=== PATIENT | male | born 1990 | race Two or more races ===

== ENCOUNTER 2017-03-09 18:05 | Emergency (ER) | payer OTHER ==
[~2017-03-09] VITALS: Ht 177.8 cm; Wt 68.9 kg
[2017-03-09 18:13] VITALS: BP 118/63
[2017-03-09] MEDS ORDERED: Bacitracin Oint UD TOPIC ONE (18:30)
[2017-03-09] MEDS ORDERED: Tetanus/Diptheria/Pertussis Vaccine 0.5ml Syr IM ONE (18:30)
[2017-03-09] MEDS ORDERED: IBUPROFEN600 MG ORAL (18:50)
[2017-03-09] MEDS ORDERED: CEPHALEXIN500 MG ORAL (18:50)
[2017-03-09 19:00] VITALS: BP 118/63
--- NOTE | 2017-03-09 20:49 | Emergency Room Report ---
History of Present Illness General Chief Complaint: Laceration Source: Patient Present Illness HPI The patient is a 26-year-old male presenting for injury to the left finger. He states that he was at work 4 days ago and a lemon jeff cut his left fifth digit. He noticed pain and bleeding at that time but did not seek medical attention. he is unsure of last tetanus shot. He denies any pain at this time. He is now presenting for possible infection. He denies any other symptoms including N, V, rash, wound discharge, numbness/tingling Allergies: Coded Allergies: No Known Allergies (Unverified , 03/09/17) Patient History Past Medical History: see triage record Pertinent Family History: none Reviewed Nursing Documentation: PMH: Agreed, PSxH: Agreed Nursing Documentation-PMH Past Medical History: No Stated History Review of Systems All Other Systems: negative except mentioned in HPI Physical Exam Vital Signs Date Time Temp Pulse Resp B/P (MAP) Pulse Ox O2 Delivery O2 Flow Rate FiO2 03/09/17 18:13 98.2 58 19 118/63 99 03/09/17 18:13 Room Air Sp02 EP Interpretation: reviewed, normal General Appearance: no apparent distress, alert, GCS 15, non-toxic Head: normocephalic, atraumatic Neck: full range of motion, supple/symm/no masses Respiratory: no respiratory distress, no accessory muscle use, speaking full sentences Musculoskeletal: back normal, gait/station normal, normal range of motion, tender - distal L 5th finger Neurologic: alert, oriented x3, responsive, motor strength/tone normal, sensory intact, speech normal Psychiatric: judgement/insight normal, memory normal, mood/affect normal, no suicidal/homicidal ideation Skin: laceration - 1cm linear laceration to the distal L 5th digit Medical Decision Making PA Attestation Dr. Cueva is my supervising physician. Patient management was discussed with my supervising physician Diagnostic Impression: Primary Impression: Finger laceration Qualified Codes: S61.317A - Laceration without foreign body of left little finger with damage to nail, initial encounter ER Course The patient is a 26-year-old male presenting for injury to the left finger Ddx considered include but not limited to fracture, tendon/ligament injury, avulsion, nerve damage PE: NAD L hand: Full AROM. SILT. There is a 1 cm linear laceration to the distal left fifth digit. Well approximated. Cap refill less than 2 seconds. No surrounding erythema The patient is unsure of his last tetanus shot. Is ordered but the patient has declined. The wound is cleaned and bacitracin was applied with dressing. Is given prescription for Motrin and Keflex and needs to followup with his primary doctor and workers compensation. ER precautions given Last Vital Signs Date Time Temp Pulse Resp B/P (MAP) Pulse Ox O2 Delivery O2 Flow Rate FiO2 03/09/17 19:00 98.2 58 19 118/63 99 Room Air Status: improved Disposition: HOME, SELF-CARE Condition: Improved Scripts Cephalexin* (KEFLEX*) 500 Mg Capsule 500 MG ORAL EVERY 12 HOURS, #14 CAP 0 Refills Prov: ALANNA YEBOAH 03/09/17 Ibuprofen* (MOTRIN*) 600 Mg Tablet 600 MG ORAL Q8H Y for For Pain, #30 TAB 0 Refills Prov: ALANNA YEBOAH 03/09/17 Referrals: NOT CHOSEN IPA/,REFERRING (PCP) Patient Instructions: Laceration Care, Adult Additional Instructions: I discussed my findings with the patient. All questions and concerns have been answered. Treatment and medication compliance have been addressed. Return to emergency Department if you notice increasing redness, wound discharge , continued bleeding, fever, numbness, or for any other reason ALANNA YEBOAH Mar 09, 2017 20:49
== END 2017-03-09 19:00 | disposition home or self-care (01) ==
LOC: EMR 18:45
DX: S61.217A Laceration without foreign body of left little finger without damage to nail, initial encounter (principal); W26.9XXA Contact with unspecified sharp object(s), initial encounter; Y93.9 Activity, unspecified; Y99.9 Unspecified external cause status
CPT/HCPCS: 90471; 90715; 99284